=== PATIENT | female | born 1970 | race Caucasian/White ===

== ENCOUNTER 2021-05-19 12:09 | Emergency (ER) | payer BC ==
[~2021-05-19] VITALS: Ht 170.2 cm; Wt 75.3 kg
[~2021-05-19 12:09] MED LIST: PERCOCET 5-3251 EACH PO; TORADOL 10 MG T10 MG PO; ZOFRAN 4 MG TAB4 MG PO; ZOFRAN4 MG PO
[2021-05-19 12:46] LABS: HEMOGLOBIN 14.2 gm/dl (12.3-15.3); RED BLOOD COUNT 4.55 M/UL (4.00-5.10); WHITE BLOOD COUNT 4.8 K/UL (4.5-11.0)
[2021-05-19] MEDS ORDERED: MUCINEX1200 MG PO (13:40)
[2021-05-19] MEDS ORDERED: PROAIR HFA8.5 GM INH (13:40)
== END 2021-05-19 15:05 | disposition home or self-care (01) ==
LOC: ER1 12:09
PROVIDERS: Physician Assistant
DX: U07.1 COVID-19 (principal); J40 Bronchitis, not specified as acute or chronic; Z23 Encounter for immunization
CPT/HCPCS: 71045; 80048; 85025; 99284; M0243; U0002

== ENCOUNTER 2021-07-09 07:39 | Emergency (ER) | payer BC ==
[~2021-07-09 07:39] MED LIST changes: +MUCINEX1200 MG PO; +PROAIR HFA8.5 GM INH
[2021-07-09 08:38] LABS: HEMOGLOBIN 15.2 gm/dl (12.3-15.3); RED BLOOD COUNT 4.93 M/UL (4.00-5.10); WHITE BLOOD COUNT 7.3 K/UL (4.5-11.0)
[2021-07-09 09:08] LABS: BUN/CREATININE RATIO 16 (0-10)
== END 2021-07-09 10:51 | disposition home or self-care (01) ==
LOC: ER1 07:39
PROVIDERS: Emergency Medicine
DX: R51.9 Headache, unspecified (principal); I10 Essential (primary) hypertension; Z90.710 Acquired absence of both cervix and uterus
CPT/HCPCS: 70450; 80053; 85025; 85652; 96374; 96375; 99284; J1885; J2270; J2405

== ENCOUNTER 2021-10-14 01:09 | Emergency (ER) | payer BC ==
[2021-10-14 01:40] LABS: HEMOGLOBIN 14.6 gm/dl (12.3-15.3); RED BLOOD COUNT 4.75 M/UL (4.00-5.10); WHITE BLOOD COUNT 10.3 K/UL (4.5-11.0)
[2021-10-14 02:10] LABS: BUN/CREATININE RATIO 16 (0-10)
== END 2021-10-14 04:43 | disposition home or self-care (01) ==
LOC: ER1 01:09
PROVIDERS: Family Medicine
DX: R07.9 Chest pain, unspecified (principal); I48.91 Unspecified atrial fibrillation
CPT/HCPCS: 71045; 80053; 82550; 82553; 83735; 83880; 84439; 84443; 84484; 85025; 85379; 85610; 85730; 93005; 96374; 96375; 99285; J1885; J2270; J2405